=== PATIENT | female | born 1950 | race African-American/Black ===

== ENCOUNTER → 2016-06-16 | Day surgery (SDC) | payer MEDICARE ==
[~2016-06-16] VITALS: Ht 160 cm; Wt 101.0 kg
[~2016-06-16] MED LIST: ACET500T3 PO; ADVA250A INH; ASPI1TAB69 PO; ASPI81TA11 PO; CHLO25TA2 PO; CHOL1CAP34 PO; COZA100T PO; CYCLOPENTOLATE HCL 1% OPHT SOLN 2 ML BTL ONE; DOCU100T9 PO; ERGO1CAP10 PO; FERR324T4 PO; FERR325T PO; FLURBIPROFEN 0.03% OPHT SOLN 2.5 ML BTL ONE; GABA600T PO; HYALURONIDASE/LIDOCAINE/EPINEPHRINE/BUPIVACAINE 6 ML SYR ONE; LEVA250T PO; METO50TA PO; MOME0.05 TOPICAL; MULT1TAB84 PO; MULTTAB67 PO; MYCO250 PO; PERC5TAB12 PO; PHENYLEPHRINE HCL 10% OPTH SOLN 5 ML BTL ONE; PLAQ200T PO; PROPARACAINE HCL 0.5% OPHT SOLN 15 ML BTL ONE; PROPOFOL 200 MG/20 ML AMP ONE; PROT40TA PO; Q-PA500T3 PO; REST30CA PO; ROSU10 PO; SODIUM CHLORID 0.9% 500 ML INJ 500 ML ONE; SPIR25TA PO; TROPICAMIDE 1% OPHT SOLN 15 ML BTL ONE; VENTAER INH; ZOVI400T PO; [UNRECOGNIZED DRUG - CODE] TOPICAL; [UNRECOGNIZED DRUG - OTHER] OS
[2016-06-16] MEDS: TOBRAMYCIN/DEXAMETHASONE OPTH OINT 3.5 GM TUBE ONE ×2 (07:19→09:25)
[2016-06-16 07:55] VITALS: BP 149/80; PULSE 50; RESP 16; TEMP 98; O2SAT 91
[2016-06-16 08:05] VITALS: PULSE 50
[2016-06-16 08:39] VITALS: PULSE 50
[2016-06-16] MEDS: LIDOCAINE HCL 1% PF 30 ML VIAL ONE ×2 (09:15)
[2016-06-16 09:32] VITALS: TEMP 97.5
[2016-06-16 09:55] VITALS: BP 158/87; PULSE 54; RESP 16; O2SAT 97
--- NOTE | 2016-06-16 10:48 | MP ---
cc: DADA MENDEZ M.D. [facility] #[id number] DATE OF SURGERY 06/16/2016 PREOPERATIVE DIAGNOSIS Visually significant cataract right eye. POSTOPERATIVE DIAGNOSIS Visually significant cataract right eye. OPERATION Phacoemulsification with posterior chamber lens implantation, right eye. SURGEON Dada Mendez MD ANESTHESIA Retrobulbar with MAC. COMPLICATIONS None PROCEDURE After informed consent was obtained, the patient was brought into the operative suite and placed on appropriate monitors by the Anesthesia Service. The patient had received a prior retrobulbar injection of local anesthetic by the Anesthesia Service in the holding area. The patient's operative eye was then prepped and draped in the usual sterile fashion. A wire lid speculum was placed. A paracentesis incision was made in the peripheral cornea with a 1 mm kimberley keratome. The anterior chamber was filled with viscoelastic. The anterior chamber was then entered through a stepped, clear corneal incision using a sharp 3 mm kimberley keratome. A circular tear capsulorrhexis was then made with a bent needle cystitome. Following hydrodissection of the lens nucleus with balanced saline, phacoemulsification of the nucleus was performed using a modified chopping technique. The remaining cortex was removed with irrigation/aspiration. The prior two procedures were both performed using the handpieces of the [employer] phaco unit. The capsular bag was then filled with viscoelastic. The intraocular lens was then injected into the capsular bag and positioned. The type of intraocular lens and its power can be found elsewhere in this chart. The remaining viscoelastic was then removed from the anterior chamber with the IA handpiece. The anterior chamber was reformed with balanced saline. The wound was then closed securely with stromal hydration. It was found to be watertight to an intraocular pressure of at least 30 mmHg by palpation. A small amount of balanced salt solution was then removed through the paracentesis site and the intraocular pressure at the end of the case was approximately 20 by palpation. All drapes were then removed. TobraDex ointment was then placed in the eye, which was closed beneath a semi-pressure patch dressing. The patient tolerated this procedure well and left the operating room awake and alert. The patient is to follow-up in my office in the morning. MD JOSEF Rodgers/DONALDO /10:31 AM /10:43 AM
== END | disposition home or self-care (01) ==
LOC: PHSDC 06:35
PROVIDERS: ATTEND Optometrist Occupational Vision
DX: H25.811 Combined forms of age-related cataract, right eye (principal); H04.123 Dry eye syndrome of bilateral lacrimal glands; M32.9 Systemic lupus erythematosus, unspecified; Z79.899 Other long term (current) drug therapy
CPT/HCPCS: 66984; J7040; V2632

== ENCOUNTER → 2016-08-04 | Day surgery (SDC) | payer MEDICARE ==
[~2016-08-04] VITALS: Ht 162.6 cm; Wt 100.0 kg
[~2016-08-04] MED LIST changes: -ACET500T3 PO; -ADVA250A INH; -ASPI1TAB69 PO; +CHLORHEXIDINE GLUCONATE 2 % 1 PACK (2 CLOTHS) TOPICAL PRN; -ERGO1CAP10 PO; -FERR325T PO; +HYALURONIDASE/LIDOCAINE/EPINEPHRINE/BUPIVACAINE 6 ML SYR LEFT EYE ONE; -HYALURONIDASE/LIDOCAINE/EPINEPHRINE/BUPIVACAINE 6 ML SYR ONE; +INSULIN HUMAN REGULAR 1,000 UNITS/10 ML VIAL SQ PRN; +LACTATED RINGER'S 1000 ML IV PRN; -LEVA250T PO; +LIDOCAINE HCL 1% PF 30 ML VIAL ONE; +LIDOCAINE HCL 2% JELLY 5 ML SYRINGE ONE; +METOPROLOL TARTRATE 25 MG TAB PO PRN; -MOME0.05 TOPICAL; -MULT1TAB84 PO; +POVIDONE IODINE 5% (ANTISEPSIS KIT) 4 APPLICATIONS EACH NARE PRN; +PROPARACAINE HCL 0.5% OPHT SOLN 15 ML BTL LEFT EYE ONE; -SODIUM CHLORID 0.9% 500 ML INJ 500 ML ONE; +SODIUM CHLORID 0.9% 500 ML IV PRN; +TOBRAMYCIN/DEXAMETHASONE OPTH OINT 3.5 GM TUBE ONE
[2016-08-04] MEDS: PHENYLEPHRINE HCL 10% OPTH SOLN 5 ML BTL LEFT EYE SCH ×4 (06:47→07:02)
[2016-08-04] MEDS: FLURBIPROFEN 0.03% OPHT SOLN 2.5 ML BTL LEFT EYE SCH ×4 (06:47→07:02)
[2016-08-04] MEDS: CYCLOPENTOLATE HCL 1% OPHT SOLN 2 ML BTL LEFT EYE SCH ×4 (06:47→07:02)
[2016-08-04] MEDS: TROPICAMIDE 1% OPHT SOLN 15 ML BTL LEFT EYE SCH ×4 (06:47→07:02)
[2016-08-04 06:55] VITALS: BP 164/73; PULSE 49; RESP 20; TEMP 98.5; O2SAT 100
[2016-08-04 07:00] VITALS: PULSE 46
[2016-08-04 09:02] VITALS: BP 145/57; PULSE 52; RESP 16; TEMP 97.7; O2SAT 100
--- NOTE | 2016-08-05 11:20 | MP ---
cc: DADA MENDEZ M.D. DATE OF SURGERY: 08/05/2016 [facility] NUMBER: [id number] PREOPERATIVE DIAGNOSIS: Visually significant cataract left eye POSTOPERATIVE DIAGNOSIS: Visually significant cataract left eye. OPERATION: Phacoemulsification with posterior chamber lens implantation, left eye. SURGEON: Dada Mendez MD ANESTHESIA: Retrobulbar with MAC. COMPLICATIONS: None. PROCEDURE: After informed consent was obtained, the patient was brought into the operative suite and placed on appropriate monitors by the Anesthesia Service. The patient had received a prior retrobulbar injection of local anesthetic by the Anesthesia Service in the holding area. The patient's operative eye was then prepped and draped in the usual sterile fashion. A wire lid speculum was placed. A paracentesis incision was made in the peripheral cornea with a 1 mm kmiberley keratome. The anterior chamber was filled with viscoelastic. The anterior chamber was then entered through a stepped, clear corneal incision using a sharp 3 mm kimberley keratome. A circular tear capsulorrhexis was then made with a bent needle cystitome. Following hydrodissection of the lens nucleus with balanced saline, phaco-emulsification of the nucleus was performed using a modified chopping technique. The remaining cortex was removed with irrigation/aspiration. The prior two procedures were both performed using the handpieces of the [employer] phaco unit. The capsular bag was then filled with viscoelastic. The intraocular lens was then injected into the capsular bag and positioned. The type of intraocular lens and its power can be found elsewhere in this chart. The remaining viscoelastic was then removed from the anterior chamber with the IA handpiece. The anterior chamber was reformed with balanced saline. The wound was then closed securely with stromal hydration. It was found to be watertight to an intraocular pressure of at least 30 mmHg by palpation. A small amount of balanced salt solution was then removed through the paracentesis site and the intraocular pressure at the end of the case was approximately 20 by palpation. All drapes were then removed. TobraDex ointment was then placed in the eye, which was closed beneath a semi-pressure patch dressing. The patient tolerated this procedure well and left the operating room awake and alert. The patient is to follow-up in my office in the morning. MD Oscar Rodgers /10:23 AM /10:47 AM
== END | disposition home or self-care (01) ==
LOC: PHSDC 06:04
PROVIDERS: ATTEND Optometrist Occupational Vision
DX: H25.812 Combined forms of age-related cataract, left eye (principal); D64.9 Anemia, unspecified; N18.9 Chronic kidney disease, unspecified; I27.2 Other secondary pulmonary hypertension; K75.4 Autoimmune hepatitis; I49.9 Cardiac arrhythmia, unspecified; M79.7 Fibromyalgia; E03.9 Hypothyroidism, unspecified; E78.5 Hyperlipidemia, unspecified; K31.84 Gastroparesis; I45.10 Unspecified right bundle-branch block; M32.9 Systemic lupus erythematosus, unspecified; E21.3 Hyperparathyroidism, unspecified; M85.80 Other specified disorders of bone density and structure, unspecified site
CPT/HCPCS: 00142; 66984; J7040; V2632